=== PATIENT | female | born 1950 | race Caucasian/White ===

== ENCOUNTER 2020-09-25 09:01 | Outpatient (CLI) | payer MEDICARE | END 2020-09-25 09:02 | disposition home or self-care (01) | LOC: SCSRAD 09:01 | PROVIDERS: ATTEND Family Medicine | DX: J32.9 Chronic sinusitis, unspecified (principal); R05 Cough | CPT/HCPCS: 70220; 71046 ==

== ENCOUNTER 2021-01-01 07:37 | Outpatient (CLI) | payer MEDICARE | END 2021-01-01 07:38 | disposition home or self-care (01) | LOC: BICRAD 07:37 | PROVIDERS: ATTEND Internal Medicine Critical Care Medicine | DX: R06.00 Dyspnea, unspecified (principal) | CPT/HCPCS: 71046 ==

== ENCOUNTER 2021-12-01 09:55 | Outpatient (CLI) | payer MEDICARE | END 2021-12-01 09:56 | disposition home or self-care (01) | LOC: RAD-FRANK 09:55 | PROVIDERS: ATTEND Nurse Practitioner Family | DX: I49.8 Other specified cardiac arrhythmias (principal) | CPT/HCPCS: 71046 ==

== ENCOUNTER 2022-05-03 12:27 | Outpatient (CLI) | payer MEDICARE | END 2022-05-03 12:28 | disposition home or self-care (01) | LOC: RAD 12:27 | PROVIDERS: ATTEND Internal Medicine Critical Care Medicine | DX: R06.00 Dyspnea, unspecified (principal) | CPT/HCPCS: 71046 ==

== ENCOUNTER 2022-05-17 09:38 | Outpatient (CLI) | payer MEDICARE ==
[2022-05-17] MEDS ORDERED: Iopamidol 370 76% 100 ML VIAL ONE (14:11)
== END 2022-05-17 09:39 | disposition home or self-care (01) ==
LOC: CT 09:38
PROVIDERS: ATTEND Internal Medicine Critical Care Medicine
DX: R05.8 Other specified cough (principal)
CPT/HCPCS: 71260; 82565; Q9967